=== PATIENT | male | born 2000 | race Caucasian/White ===

== ENCOUNTER 2019-10-25 00:04 | Inpatient (IN) | payer OTHER ==
[~2019-10-25] VITALS: Ht 180.3 cm; Wt 114.3 kg
[2019-10-25 00:08] VITALS: BP 132/70
--- NOTE | 2019-10-25 00:13 | NUR ---
PT AMBULATED TO BED #11.
--- NOTE | 2019-10-25 00:17 | NUR ---
DR OSHEA AT BEDSIDE
[2019-10-25] MEDS ORDERED: ONDANSETRON 4 MG/2 ML VIAL IVP ONE (00:30)
[2019-10-25] MEDS ORDERED: NACL 0.9% 1,000 ML IV ONE (00:30)
[2019-10-25] MEDS ORDERED: KETOROLAC 30 MG/ML VIAL IVP ONE (00:30)
--- NOTE | 2019-10-25 00:30 | NUR ---
PT BIB MOM C/O SHARP RLQ ABD PAIN X 15:00 YESTERDAY. + NAUSEA, + VOMITING, + CHILLS. PMH:DENIES
--- NOTE | 2019-10-25 00:56 | NUR ---
PT TO CT VIA W/C AT THIS TIME
[2019-10-25 00:58] LABS: BASOPHILS % (AUTO) 0.1 % (0.0-2.0); EOSINOPHILS % (AUTO) 0.1 % (0.0-4.0); HEMATOCRIT 46.8 % (36-52); HEMOGLOBIN 16.1 g/dL (12.0-18.0); LYMPHOCYTES # (AUTO) 0.6 K/uL (2.0-11.5); MEAN CORPUSCULAR HEMOGLOBIN 30 pg (27-31); MEAN CORPUSCULAR HGB CONC 34 g/dL (33-37); MEAN CORPUSCULAR VOLUME 88.4 fL (80-94); MONOCYTES # (AUTO) 0.7 K/uL (0.8-1.0); MONOCYTES % (AUTO) 4.3 % (1.7-9.3); NEUTROPHILS # (AUTO) 14.5 K/uL (1.8-7.7); PLATELET COUNT (AUTO) 199 K/uL (140-450); RED BLOOD CELL COUNT(AUTO) 5.29 MIL/uL (4.20-6.10); RED CELL DISTRIBUTION WIDTH 12.7 % (11.6-13.7)
--- NOTE | 2019-10-25 01:10 | NUR ---
PT RETURNED FROM CT
[2019-10-25 01:12] LABS: LYMPHOCYTES % (AUTO) 3.5 % (20.5-51.1); WHITE BLOOD COUNT (AUTO) 15.8 K/uL (4.8-10.8)
[2019-10-25 01:14] LABS: ALBUMIN 4.4 g/dL (3.4-5.0); ANION GAP 14.1 (8-16); CARBON DIOXIDE 27.8 mmol/L (21-32); CREATININE 0.8 mg/dL (0.6-1.3); POTASSIUM 3.9 mmol/L (3.5-5.1); TOTAL BILIRUBIN 0.6 mg/dL (0.0-1.0)
[2019-10-25] MEDS ORDERED: metroNIDAZOLE 500 MG/NS PREMIX 100 ML IV ONE (01:25)
[2019-10-25] MEDS ORDERED: ONDANSETRON 4 MG/2 ML VIAL IVP PRN ×2 (02:35→11:15)
[2019-10-25] MEDS ORDERED: MORPHINE SULFATE 4 MG/ML SYR IVP PRN (02:35)
[2019-10-25] MEDS ORDERED: ACETAMINOPHEN 325 MG TAB PO PRN (02:35)
[2019-10-25] MEDS ORDERED: MORPHINE SULFATE 2 MG/ML SYR IVP PRN (02:35)
--- NOTE | 2019-10-25 02:38 | NUR ---
Patient will be admitted to care of [facility]. Admited to MED/SURG. Will go to room 126A. Belongings list completed. Report to FLOOR RN.
[2019-10-25] MEDS ORDERED: CLINDAMYCIN 900 MG in DEXTROSE 5% 100 ML IV ONE (02:40)
[2019-10-25] MEDS ORDERED: CLINDAMYCIN 900 MG/6 ML VIAL IV ONE (02:46)
--- NOTE | 2019-10-25 03:10 | NUR ---
RECEIVED FROM ER PER HEIKE AWAKE AND ALERT, ORIENTED X 4. ROM X 4. ACCOMPANIED BY MOTHER. DX. OF ACUTE APPENDICITIS. SKIN INTACT. REMINDED NPO AT THIS TIME FOR PROCEDURE IN A.M. BY MD IZAGUIRRE. ORIENTED TO ROOM AND CALL LIGHT USE. IVF SITE INTACT TO RIGHT HAND #22. ENCOURAGED TO CALL FOR ANY PAIN HE MIGHT HAVE OR FOR ANY HELP.
[2019-10-25 04:04] VITALS: BP 120/81
[2019-10-25] MEDS: DEXT 5% /NACL 0.9% 1,000 ML IV SCH ×2 (04:19→12:40)
--- NOTE | 2019-10-25 05:00 | NUR ---
SLEPT WELL. NO COMPLAINTS DONE.
[2019-10-25 05:54] LABS: APPEARANCE,URINE CLOUDY (CLEAR); BILIRUBIN,URINE NEGATIVE (NEGATIVE); BLOOD, URINE NEGATIVE (NEGATIVE); COLOR,URINE YELLOW (YELLOW); LEUKOCYTE ESTERASE ,URINE NEGATIVE (NEGATIVE); NITRITE, URINE NEGATIVE (NEGATIVE); PH,URINE 6.5 (5.0-9.0); UGLUCOSE NEGATIVE (NEGATIVE)
[2019-10-25 06:16] LABS: BASOPHILS # (AUTO) 0.1 K/uL (0.00-0.22); BASOPHILS % (AUTO) 0.8 % (0.0-2.0); EOSINOPHILS % (AUTO) 0.1 % (0.0-4.0); HEMATOCRIT 43.7 % (36-52); LYMPHOCYTES # (AUTO) 1.1 K/uL (2.0-11.5); LYMPHOCYTES % (AUTO) 7.2 % (20.5-51.1); MEAN CORPUSCULAR HEMOGLOBIN 30 pg (27-31); MEAN CORPUSCULAR HGB CONC 34 g/dL (33-37); MONOCYTES % (AUTO) 6.5 % (1.7-9.3); NEUTROPHILS # (AUTO) 12.6 K/uL (1.8-7.7); NEUTROPHILS % (AUTO) 85.4 % (42.2-75.2); PLATELET COUNT (AUTO) 202 K/uL (140-450); RED BLOOD CELL COUNT(AUTO) 4.97 MIL/uL (4.20-6.10); RED CELL DISTRIBUTION WIDTH 12.7 % (11.6-13.7); WHITE BLOOD COUNT (AUTO) 14.7 K/uL (4.8-10.8)
[2019-10-25 06:29] LABS: ANION GAP 12.4 (8-16); CARBON DIOXIDE 28.3 mmol/L (21-32); CREATININE 0.8 mg/dL (0.6-1.3); POTASSIUM 3.7 mmol/L (3.5-5.1)
[2019-10-25 06:36] LABS: PROTHROMBIN TIME 10.4 secs (10.8-13.4)
--- NOTE | 2019-10-25 07:30 | NUR ---
RECEIVED BEDSIDE REPORT FROM NIGHT NURSE, PT STABLE, INTRODUCE SELF, UPDATE WHITE BOARD, PT HAS RH 20G RUNNING D5NS AT 100 ML/H, WILL CONTINUE TO MONITOR, CALL LIGHT WITHIN REACH.
--- NOTE | 2019-10-25 07:36 | NUR ---
SLEPT WELL THIS SHIFT. NO COMPLAINTS OF ANY PAIN. VERBALIZES WELL IN UKRAINIAN. SURGICAL CONSENT SIFNED BY PT.
[2019-10-25 08:00] VITALS: BP 145/55
--- NOTE | 2019-10-25 08:35 | NUR ---
GAVE PT ORDERED MEDICATION, EDUCATION GIVEN, PT VERBALIZED UNDERSTANDING, PT IS STABLE, FAMILY AT BEDSIDE, OR NURSE HERE TO TAKE PT TO OR FOR SURGERY.
[2019-10-25] MEDS ORDERED: LEVOFLOXACIN 750 MG/D5W PREMIX 150 ML IV ONE (09:00)
[2019-10-25] MEDS ORDERED: LIDOCAINE 1% 500 MG/50 ML VIAL ONE (09:04)
[2019-10-25] MEDS ORDERED: BUPIVACAINE-MPF 0.25% 30 ML VIAL INJ ONE (09:04)
[2019-10-25] MEDS ORDERED: ROCURONIUM 50 MG/5 ML VIAL IV ONE (09:25)
[2019-10-25] MEDS ORDERED: SUCCINYLCHOLINE CHLORIDE 200 MG/10 ML VIAL IVP ONE (09:25)
[2019-10-25] MEDS ORDERED: ONDANSETRON 4 MG/2 ML VIAL ONE (09:25)
[2019-10-25] MEDS ORDERED: METOCLOPRAMIDE 10 MG/2 ML INJ VIAL ONE (09:25)
[2019-10-25] MEDS ORDERED: SEVOFLURANE 250 ML BTL INH ONE (09:25)
[2019-10-25] MEDS ORDERED: fentaNYL 0.05 MG/ML VIAL ONE (09:25)
[2019-10-25] MEDS ORDERED: MIDAZOLAM 2 MG/2 ML VIAL ONE (09:25)
[2019-10-25] MEDS ORDERED: PROPOFOL 200 MG/20 ML VIAL IV ONE (09:25)
[2019-10-25] MEDS ORDERED: GLYCOPYRROLATE 0.2 MG/ML VIAL ONE (09:25)
--- NOTE | 2019-10-25 10:32 | NUR ---
PATIENT HAS BEEN SCREENED AND CATEGORIZED LOW NUTRITION RISK. PATIENT WILL BE SEEN WITHIN 7 DAYS OF ADMISSION. 10/31/[address]
[2019-10-25] MEDS ORDERED: HYDROmorphone 1 MG/ML AMP IM/IV PRN (10:55)
[2019-10-25] MEDS ORDERED: POTASSIUM CHL 20 MEQ/D5-1/2NS 1,000 ML IV SCH (10:55)
[2019-10-25] MEDS ORDERED: HYDROcodone/APAP 5/325 MG 1 TAB TAB PO PRN ×2 (10:55→15:25)
[2019-10-25] MEDS ORDERED: IBUPROFEN 600 MG TAB PO PRN (10:55)
[2019-10-25] MEDS ORDERED: HYDROmorphone 1 MG/ML AMP IVP PRN ×2 (11:00→11:15)
[2019-10-25] MEDS ORDERED: LACTATED RINGERS 1,000 ML IV SCH (11:12)
[2019-10-25] MEDS ORDERED: MEPERIDINE 25 MG/ML SYR IVP PRN (11:15)
[2019-10-25] MEDS ORDERED: diphenhydrAMINE 50 MG/ML VIAL IVP PRN (11:15)
--- NOTE | 2019-10-25 11:45 | NUR ---
PT BACK IN THE ROOM FROM SURGERY, PT STABLE, WITH 2 LAPAROSCOPIC INCISION CLOSED WITH DERMABOND, DOLLY DRAIN SUPRAPUBIC, WILL CONTINUE TO MONITOR.
--- NOTE | 2019-10-25 12:08 | NUR ---
GAVE PT DILAUDID FOR ABDOMINAL PAIN, S/P LAPAROSCOPIC SURGERY, PAIN 03/14, PT EDUCATION GIVEN, PT TOLERATED WELL, CALL LIGHT WITHIN REACH.
[2019-10-25] MEDS: metroNIDAZOLE 500 MG/NS PREMIX 100 ML IV SCH ×2 (12:49→18:13)
--- NOTE | 2019-10-25 13:42 | NUR ---
GAVE PT MOTRIN FOR PAIN OF 3/10, ABDOMINAL PAIN, PT EDUCATION GIVEN, PT VERBALIZED UNDERSTANDING, PT STABLE, CALL LIGHT WITHIN REACH.
--- NOTE | 2019-10-25 15:00 | NUR ---
PT IS STABLE, WATCHING TV WITH FRIEND, CALL LIGHT WITHIN REACH.
[2019-10-25 16:00] VITALS: BP 116/63
--- NOTE | 2019-10-25 16:04 | NUR ---
Global Supply Chain Vice President Note: Basic Screen: Yes High Risk DC Screen [place]: DERECK KELLEY Wayne Relationship: MOTHER Pre-Admission Living Arrangements: Lives with Other Prior ADL Independent Current Home Health Name/Tel: N/A Current DME/02 Name/Tel: N/A Current Hospice Name/Tel: N/A Current Dialysis Name/Tel: N/A Healthcare Decision Maker: Patient Advance Directive No Physician Orders for Life Sustaining Treatment Form No Patient/Family Have Educational Needs No Information Taught: Advance Directive Person Taught: Patient Significant Other Teaching Tools: Verbal Factors Affecting Learning: None Participation Level: Refused Evaluation: Verbalizes Understanding Discipline: Case Mgt/Social Svcs Tentative Discharge Plan/Destination: No Needs Identified Will require assistance post discharge: No Referred to [facility]: No Tentative Discharge Plan Summary: Patient is a 19-year-old male admitted for acute appendicitis. Patient has no significant PMHX. Patient was admitted from home where he lives with mother, aunt, and brother. Patient refused mental health history and substance abuse history. SW provided education on advanced directive but patient refused. Patient's tentative discharge plan is to return home. No further needs identified. Signature: HUGH Cohen Date: Oct 25, 2019 Time: 16:04
[2019-10-25] MEDS: MORPHINE SULFATE 4 MG/ML SYR IVP PRN ×2 (16:28→20:56)
--- NOTE | 2019-10-25 16:28 | NUR ---
GAVE PT MORPHINE FOR SEVERE ABDOMINAL PAIN, 03/14, PT STATES IT IS A THROBBING PAIN THAT GETS PROGRESSIVELY WORST WHEN HE TRIES TO MOVE, PT EDUCATION GIVEN, PT TOLERATE MEDICATION WELL, WILL CONTINUE TO MONITOR, CALL LIGHT WITHIN REACH.
--- NOTE | 2019-10-25 19:14 | NUR ---
GAVE REPORT TO NIGHT NURSE FOR CONTINUITY OF CARE, PT IS STABLE.
--- NOTE | 2019-10-25 19:15 | NUR ---
RECEIVED BEDSIDE REPORT FROM DAY RN. PT IS AAOX4. RESPIRATIONS ARE EQUAL AND UNLABORED ON ROOM AIR. LUNG SOUNDS ARE CLEAR. PT IS S/P LAP APPENDECTOMY WITH 3 SURGICAL INCISION AND DOLLY DRAIN. PER DAY RN OUTPUT <30CC. IV ON RT HAND 20 CURRENT IV ANTIBIOTICS INFUSING. PT IS SL AFTER. PT IS AMBULATORY AND ABLE TO MAKE NEEDS KNOWN. FAMILY IS AT BEDSIDE. POC DISCUSSED WITH PT AND FAMILY. VERBALIZED UNDERSTANDING. CALL LIGHT IS WITHIN REACH. WILL CONTINUE TO MONITOR.
--- NOTE | 2019-10-25 20:17 | NUR ---
PATIENT UP AND AMBULATED TO BATHROOM. DENIES DIZZINESS AND HAS STEADY GAIT, ENCOURAGE PT TO AMBULATE. PT VERBALIZED UNDERSTANDING. CALL LIGHT IS WITHIN REACH. FAMILY IS AT BEDSIDE. WILL CONTINUE TO MONITOR.
--- NOTE | 2019-10-25 20:56 | NUR ---
PT'S VSS. PT'S WITH 3 SURGICAL INCISION COVERED DRESSINGS ARE C/D/I. DOLLY WITH MINIMAL RED DRAINAGE. ADMINISTERED PRN MORPHINE IVP FOR ABDOMEN PAIN 03/14. PT TOLERATED WELL. EDUCATED PATIENT ON USE OF IS X10 EVERY HOUR WHEN AWAKE. ALL SAFETY MEASURES ARE IN PLACE. CALL LIGHT IS WITHIN REACH. WILL CONTINUE TO MONITOR.
--- NOTE | 2019-10-25 23:00 | NUR ---
PATIENT IS SLEEPING COMFORTABLY IN BED. RESPIRATIONS ARE EQUAL AND UNLABORED ON ROOM AIR. CALL LIGHT IS WITHIN REACH.
[2019-10-26] VITALS: BP 115/52
--- NOTE | 2019-10-26 | NUR ---
VITAL SIGNS ARE WITHIN NORMAL LIMITS. ALL NEEDS MET AT THIS TIME. CALL LIGHT IS WITHIN REACH.
[2019-10-26] MEDS: metroNIDAZOLE 500 MG/NS PREMIX 100 ML IV SCH ×3 (01:29→17:45)
--- NOTE | 2019-10-26 02:40 | NUR ---
PT IS SLEEPING COMFORTABLY IN BED WITH EYES CLOSED. CHEST RISE AND FALL. ALL SAFETY MEASURES ARE IN PLACE. WILL CONTINUE TO MONITOR.
[2019-10-26] MEDS: MORPHINE SULFATE 4 MG/ML SYR IVP PRN ×3 (05:23→15:25)
--- NOTE | 2019-10-26 05:23 | NUR ---
C/C ABD PAIN 8/10 ADMINISTERED PRN MORPHINE IVP. PT TOLERATED WELL. EMPTIED 30CC OF BLOODY DRAINAGE FROM DOLLY. ALL SAFETY MEASURES ARE IN PLACE. CALL LIGHT IS WITHIN REACH. WILL CONTINUE TO MONITOR.
[2019-10-26 06:16] LABS: BASOPHILS # (AUTO) 0.1 K/uL (0.00-0.22); BASOPHILS % (AUTO) 0.7 % (0.0-2.0); EOSINOPHILS % (AUTO) 0.3 % (0.0-4.0); HEMATOCRIT 41.7 % (36-52); HEMOGLOBIN 14.4 g/dL (12.0-18.0); LYMPHOCYTES # (AUTO) 2.1 K/uL (2.0-11.5); LYMPHOCYTES % (AUTO) 26.9 % (20.5-51.1); MEAN CORPUSCULAR HEMOGLOBIN 31 pg (27-31); MEAN CORPUSCULAR HGB CONC 35 g/dL (33-37); MEAN CORPUSCULAR VOLUME 88.7 fL (80-94); MONOCYTES # (AUTO) 0.7 K/uL (0.8-1.0); MONOCYTES % (AUTO) 9.3 % (1.7-9.3); NEUTROPHILS % (AUTO) 62.8 % (42.2-75.2); PLATELET COUNT (AUTO) 161 K/uL (140-450)
[2019-10-26 06:56] LABS: ANION GAP 11.3 (8-16); CARBON DIOXIDE 29.5 mmol/L (21-32); POTASSIUM 3.8 mmol/L (3.5-5.1)
[2019-10-26 07:02] LABS: PHOSPHORUS 3.2 mg/dL (2.5-4.9)
--- NOTE | 2019-10-26 07:21 | NUR ---
GAVE BEDSIDE REPORT TO DAY RN. PT ENDORSED IN STABLE CONDITION.
--- NOTE | 2019-10-26 07:25 | NUR ---
RECEIVED BEDSIDE REPORT FROM NIGHT NURSE. PATIENT IN BED, ASLEEP, EASILY AROUSABLE BY NAME OR TOUCH. AAOX4. SKIN WARM AND DRY TO TOUCH. INTRODUCED SELF. NO S/S OF DISTRESS NOTED. IV INTACT AND PATENT TO RIGHT HAND. S/P LAP APPENDECTOMY INTACT WITH DRY DRESSING. DOLLY DRAIN INTACT. NO DRAINAGE NOTED AT THIS TIME. BED IN LOW POSITION. BED ALARM ON. SAFETY MEASURES IN PLACE.
[2019-10-26 08:00] VITALS: BP 117/60
--- NOTE | 2019-10-26 09:45 | NUR ---
PATIENT IN BED, AWAKE, ALERT, AWAKE, ORIENTED X4. NO S/S OF DISTRESS NOTED. BED IN LOW POSITION. SAFETY MEASURES IN PLACE. CALL LIGHT WITHIN REACH. FAMILY AT BEDSIDE.
--- NOTE | 2019-10-26 10:18 | NUR ---
DISCHARGE PLANNING: THIS IS A 19 Y/O MALE PATIENT FROM HOME, WHO CAME IN DUE TO ABDOMINAL PAIN. DENIES ANY MEDICAL HISTORY. INITIAL DIAGNOSIS OF ACUTE APPENDICITIS. CURRENT LABS INCLUDE WBC 8.0, H/H 14.4/41.7, NA/K 144/3.8, BUN/CREA 8/1.0. SURGICAL CONSULT WITH DR. IZAGUIRRE IN PLACE. S/P S/P LAP APPENDICITIS. DC PLAN BACK TO HOME ONCE STABLE.
--- NOTE | 2019-10-26 11:45 | NUR ---
PATIENT IS AAOX4. NO S/S OF DISTRESS NOTED. ABLE TO MAKE NEEDS KNOWN. PATIENT ABLE TO AMBULATE TO THE RESTROOM WITH STEADY GAIT. CALL LIGHT WITHIN REACH. DOLLY DRAIN INTACT AND DRAINING SEROUS SANGUINEOUS DRAINAGE, 20ML OUTPUT.
--- NOTE | 2019-10-26 13:55 | NUR ---
PATIENT IS AMBULATING IN THE HALLWAYS WITH STEADY GAIT.
--- NOTE | 2019-10-26 15:45 | NUR ---
PATIENT MEDICATED FOR PAIN. PATIENT IS FOR DISCHARGE TODAY. PATIENT'S MOTHER STATED SHE WILL VACUUM CLOSING MACHINE OPERATOR PATIENT BETWEEN 5-6 PM.
[2019-10-26 16:00] VITALS: BP 114/60
--- NOTE | 2019-10-26 16:52 | NUR ---
DISCHARGE INSTRUCTIONS, TEACHINGS PROVIDED TO PATIENT. PATIENT IS DISCHARGING TO HOME WITH DOLLY DRAIN IN PLACE, INSTRUCTIONS PROVIDED WITH HANDOUT GIVEN. EDUCATED PATIENT TO FOLLOW UP WITH DR. IZAGUIRRE ON TUESDAY IF NO ANSWER PLEASE COME AT 11AM # [phone]. DISCHARGE PRESCRIPTION GIVEN. CALLED TO DR. CHAUDHRY IN REGARDS TO PATIENT'S QUESTION ABOUT DIET, PER DR. CHAUDHRY PATIENT IS TO BE ON FULL LIQUID DIET UNTIL INSTRUCTED BY DR. IZAGUIRRE. PATIENT MADE AWARE. INSTRUCTED PATIENT THAT HE MAY SHOWER LONG THE INCISIONS ARE COVERED PER DR. CHAUDHRY. PATIENT WILL BE PICKED UP BY MOTHER BETWEEN 5-6 PM.
--- NOTE | 2019-10-26 17:40 | NUR ---
PATIENT EATING DINNER. PATIENT REMAINS STABLE, WAITING FOR CORPORATE ACCOUNTING MANAGER.
--- NOTE | 2019-10-26 18:06 | NUR ---
PATIENT'S MOTHER IS HERE TO THERAPIST OCCUPATIONAL PATIENT TO DISCHARGE TO HOME. ALL DISCHARGE PAPERWORK, PRESCRIPTION AND ALL BELONGINGS GIVEN TO PATIENT. IV REMOVED, CANNULA INTACT. ID BAND REMOVED. PATIENT AMBULATED WITH STEADY GAIT.
== END 2019-10-26 18:25 | disposition home or self-care (01) | DRG 233 ==
LOC: MED 00:04 → MMU 02:40
PROVIDERS: ADMIT Internal Medicine Pulmonary Disease; ATTEND Internal Medicine Pulmonary Disease
PROC: 0W9G40Z Drainage of Peritoneal Cavity with Drainage Device, Percutaneous Endoscopic Approach (ICD-10-PCS; 2019-10-25)
PROC: 0DTJ4ZZ Resection of Appendix, Percutaneous Endoscopic Approach (ICD-10-PCS; principal; 2019-10-25 09:00)
DX: K35.32 Acute appendicitis with perforation, localized peritonitis, and gangrene, without abscess (principal); E66.01 Morbid (severe) obesity due to excess calories; Z68.35 Body mass index [BMI] 35.0-35.9, adult; Z88.1 Allergy status to other antibiotic agents
CPT/HCPCS: 36415; 80048; 80053; 81003; 82374; 83735; 84100; 85025; 85610; 85730; 87040; 87081; 96361; 96374; 96375; 99285; J0330; J1170; J1885; J1956; J2001; J2250; J2270; J2405; J2704; J2765; J3010; J3490; J7030; J7042